=== PATIENT | female | born 1970 | race African-American/Black ===

== ENCOUNTER 2017-07-26 08:06 | Emergency (ER) | payer MEDICARE, OTHER ==
[~2017-07-26] VITALS: Ht 167.6 cm; Wt 68.0 kg
[~2017-07-26 08:06] MED LIST: FAMO40TA4; OLAN10TA3 PO; RISP4TAB2 PO; VIT1TABL65
[2017-07-26 08:35] VITALS: BP 125/84
--- NOTE | 2017-07-26 08:47 | RAD ---
Indication shortness of breath. Frontal and lateral views of the chest were obtained. Comparison is made to an examination 08/20/2012. The heart and pulmonary vessels appear normal. The lungs are clear. There is no pleural fluid or pneumothorax. There's been little change compared to the previous exam. IMPRESSION: No acute finding. No significant change
[2017-07-26] MEDS ORDERED: AMOX1TAB61 PO (08:56)
[2017-07-26] MEDS ORDERED: IBUP-1060 PO (08:56)
[2017-07-26] MEDS ORDERED: PSEU30CA PO (08:56)
--- NOTE | 2017-07-26 09:13 | PHYS DOC ---
Past Medical History Past Medical History: No Pertinent History Past Surgical History: No Surgical History Additional Past Surgical Histo: TUBAL , Alcohol Use: None Drug Use: None Adult General Chief Complaint Chief Complaint: sinus drainage HPI HPI Patient is a 47 year old female who presents with 1 week of cough, sinus drainage and generalized body aches. No fevers reported and she hasn't taken any symptom controlling medications. PCP is Dr. Rosales Review of Systems Review of Systems Constitutional: Denies fever or chills, reports body aches Eyes: Denies change in visual acuity, redness, or eye pain [] HENT: per hpi Respiratory: Denies cough , denies shortness of breath [] Cardiovascular: Denies chest pain GI: Denies abdominal pain, nausea, vomiting, bloody stools or diarrhea [] : Denies dysuria or hematuria [] Musculoskeletal: reports chronic back pain Integument: Denies rash or skin lesions [] Neurologic: Denies focal weakness or sensory changes [] Allergies Allergies Allergies Coded Allergies Type Severity Reaction Last Updated Verified No Known Drug Allergies 02/11/14 No Physical Exam Physical Exam Constitutional: Well developed, well nourished, ill appearing, non-toxic appearance. []sinus congested voice HENT: Normocephalic, atraumatic, bilateral external ears normal, oropharynx moist, no oral exudates, nose normal. [] Eyes: PERRLA, EOMI, conjunctiva normal, no discharge. [] Neck: Normal range of motion, no tenderness, supple, no stridor. [] Cardiovascular:Heart rate regular with regular rhythm, no murmur [] Lungs & Thorax: Bilateral breath sounds clear to auscultation , no wheeze or crackles Abdomen: Bowel sounds normal, soft, no tenderness, no masses, no pulsatile masses. [] Skin: Warm, dry, no erythema, no rash. [] Back: No tenderness, no CVA tenderness. [] Extremities: No tenderness, no cyanosis, no clubbing, ROM intact, no edema. [] Neurologic: Alert and oriented X 3, normal motor function, normal sensory function, no focal deficits noted. [] EKG EKG [] Radiology/Procedures Radiology/Procedures CXR: No acute cardiac, pulmonary or bony abnormality noted, interpreted by me.[] Course & Med Decision Making Course & Med Decision Making Pertinent Labs and Imaging studies reviewed. (See chart for details) Pt likely with viral syndrome, possibly flu but out of window for treatment. CXR neg for pna. Discussed tx for sinusitis at 10 days, will give RX for augmentin, recommend not feeling unless still ill at 10 days. Also given sudafed and ibuprofen. f/u with PCP, 2 day work note given. Dragon Disclaimer Dragon Disclaimer This electronic medical record was generated, in whole or in part, using a voice recognition dictation system. Departure Departure Impression: Primary Impression: Sinusitis Additional Impression: Systemic viral illness Disposition: HOME, SELF-CARE Condition: STABLE Patient Instructions: Sinusitis, [id number], Form - Excuse from Work, School , or Physical Activity, Viral Syndrome Scripts Amoxicillin/Potassium Clav (AUGMENTIN 875-125 TABLET) 1 Each Tablet 1 TAB PO BID, #14 TAB Start 07/28 if symptoms persist Prov: WINNIE MOODY MD 07/26/17 Pseudoephedrine HCl (Nasal Decongestant) 30 Mg Capsule 30 MG PO PRN Q4-6HRS Y for sinus congestion, #30 CAP Prov: WINNIE MOODY MD 07/26/17 Ibuprofen (IBUPROFEN) 800 Mg Tablet 800 MG PO PRN TID Y for PAIN, #20 TAB take with food or milk to avoid upsetting stomach Prov: WINNIE MOODY MD 07/26/17 Problem Qualifiers WINNIE MOODY MD Jul 26, 2017 09:13
== END 2017-07-26 09:10 | disposition home or self-care (01) ==
LOC: ER 08:06
DX: J32.9 Chronic sinusitis, unspecified (principal); B33.8 Other specified viral diseases
CPT/HCPCS: 71020; 99284

== ENCOUNTER 2022-02-01 16:18 | Emergency (ER) | payer OTHER, MEDICAID ==
[~2022-02-01] VITALS: Ht 165.1 cm; Wt 63.3 kg
[~2022-02-01 16:18] MED LIST changes: +AMOX1TAB61 PO; +IBUP-1060 PO; +PSEU30CA PO; -RISP4TAB2 PO; +RISP4TAB65 PO
[2022-02-01 16:34] VITALS: BP 161/88
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
[2022-02-01] MEDS ORDERED: IBUPROFEN 200 MG TABLET. PO ONE (16:45)
--- NOTE | 2022-02-01 17:37 | RAD ---
XR HAND_LEFT 3 VIEWS DATE: 02/01/2022 5:12 PM INDICATION: Reason: Trauma, swelling / Spl. Instructions: / History: COMPARISON: None. FINDINGS: Bones: Displaced transverse fracture at the base of the first metacarpal with half a bone width later al displacement of the distal metacarpal. The first carpometacarpal joint articulation appears to be preserved. There does not appear to be any intra-articular fracture extension. Joints: The joint spaces are normal. Miscellaneous: Expected soft tissue swelling around the first carpometacarpal joint. IMPRESSION: Closed displaced extra-articular transverse fracture at the base of the first metacarpal. Electronically signed by: Jose Guadalupe Coronel DO (02/01/2022 5:35 PM) [facility]
[2022-02-01] MEDS ORDERED: NAPR-683 PO (18:43)
== END 2022-02-01 19:06 ==
LOC: EEVIPCON 16:18 → ER 16:18
DX: S62.232A Other displaced fracture of base of first metacarpal bone, left hand, initial encounter for closed fracture (principal); F17.200 Nicotine dependence, unspecified, uncomplicated; Y08.89XA Assault by other specified means, initial encounter; Y93.89 Activity, other specified; Y92.89 Other specified places as the place of occurrence of the external cause; Y99.8 Other external cause status
CPT/HCPCS: 29125; 73130; 99283